=== PATIENT | male | born 1970 | race American Indian/Alaskan Native ===

== ENCOUNTER 2019-12-16 10:17 | Emergency (ER) | payer SELFPAY ==
--- NOTE | 2019-12-16 10:56 | Emergency Department Report ---
ED Neuro Deficit HPI - General Chief Complaint: High BP Stated Complaint: HIGH BLOOD PRESSURE Time Seen by Provider: 12/16/19 10:36 Source: patient, EMS Mode of arrival: Stretcher Limitations: No Limitations - History of Present Illness Initial Comments: 49-year-old male with a past medical history of obesity presents to the hospital complains of transient left-sided numbness x2 days. 2 days ago patient had left arm and leg numbness and tingling sensation lasting half a day and then resolved. Patient took aspirin prior to symptom resolution. Last night patient went to sleep at 11 PM without symptoms. He states that around 3:04 AM the paresthesias/pain/tingling sensation to his left arm and leg woke him up from sleep. Patient initially thought he slept on the extremity wrong however, symptoms did not improve. He also complains of having difficulty using his left arm because it felt heavy and complains of feeling lightheaded with standing. After EMS arrival to take him to the hospital patient developed a 6/10 headache. Patient's left-sided paresthesias improved after arrival to the ED. Patient has a family history of CAD. He does not smoke cigarettes and to his knowledge has no medical problems but he does not see a physician on a regular basis - Related Data Home Medications: Previous Rx's Medication Instructions Recorded Last Taken Type Clopidogrel [Plavix] 75 mg PO QDAY #30 tablet 12/16/19 Unknown Rx Simvastatin 40 mg PO QHS #30 tablet 12/16/19 Unknown Rx Allergies/Adverse Reactions: Allergies Allergy/AdvReac Type Severity Reaction Status Date / Time No Known Allergies Allergy Unverified 12/16/19 10:34 ED Review of Systems ROS: Stated complaint: HIGH BLOOD PRESSURE Other details as noted in HPI Comment: All other systems reviewed and negative ED Past Medical Hx - Past Medical History Previous Medical History?: No - Surgical History Past Surgical History?: No - Social History Smoking Status: Never Smoker Substance Use Type: None - Medications Home Medications: Home Medications Medication Instructions Recorded Confirmed Last Taken Type Clopidogrel [Plavix] 75 mg PO QDAY #30 tablet 12/16/19 Unknown Rx Simvastatin 40 mg PO QHS #30 tablet 12/16/19 Unknown Rx ED Neuro Physical Exam - General Limitations: No Limitations Suspected Stroke: Yes - NIHSS Assessment Interval: Baseline 1a. Level of Consciousness: alert/keenly responsive 1b. LOC Questions: answers both correctly 1c. LOC Commands: performs tasks correctly 2. Best Gaze: normal 3. Visual: no visual loss 4. Facial Palsy: normal symmetrical movement 5b. Motor Arm Right: no drift 5a. Motor Arm Left: no drift 6a. Motor Leg Left: no drift 6b. Motor Leg Right: no drift 7. Limb Ataxia: absent 8. Sensory: mild/moderate sensory loss (decreased sensation only to distal medial leg/calf area) 9. Best Language: no aphasia 10. Dysarthria: normal 11. Extinction/Inattention: no abnormality Total Score: 1 Stroke Severity: Minor Stroke ED Course Vital Signs 12/16/19 12/16/19 12/16/19 10:28 10:30 10:32 Temperature 98 F Pulse Rate 82 80 77 Respiratory 13 19 19 Rate Blood Pressure 184/93 O2 Sat by Pulse 98 98 Oximetry 12/16/19 12/16/19 12/16/19 10:34 11:00 11:30 Temperature Pulse Rate 80 80 79 Respiratory 19 15 17 Rate Blood Pressure 184/93 154/113 133/92 O2 Sat by Pulse 98 97 97 Oximetry 12/16/19 12/16/19 12/16/19 12:06 12:30 13:00 Temperature Pulse Rate 86 79 73 Respiratory 15 21 16 Rate Blood Pressure 146/86 146/86 95/61 O2 Sat by Pulse 99 98 97 Oximetry 12/16/19 12/16/19 12/16/19 13:30 14:00 14:30 Temperature Pulse Rate 79 78 78 Respiratory 20 14 19 Rate Blood Pressure 95/59 112/71 O2 Sat by Pulse 96 97 98 Oximetry 12/16/19 12/16/19 12/16/19 15:00 15:30 16:00 Temperature Pulse Rate 77 78 78 Respiratory 20 21 16 Rate Blood Pressure 107/67 129/86 101/66 O2 Sat by Pulse 94 94 94 Oximetry 12/16/19 16:30 Temperature Pulse Rate 87 Respiratory 14 Rate Blood Pressure 116/76 O2 Sat by Pulse 96 Oximetry - Lab Data Result diagrams: 12/16/19 10:59 12/16/19 10:59 Lab Results 12/16/19 12/16/19 12/16/19 Range/Units 10:59 10:59 10:59 WBC 5.9 (4.5-11.0) K/mm3 RBC 5.10 H (3.65-5.03) M/mm3 Hgb 14.5 (11.8-15.2) gm/dl Hct 41.8 (35.5-45.6) % MCV 82 L (84-94) fl MCH 28 (28-32) pg MCHC 35 H (32-34) % RDW 13.3 (13.2-15.2) % Plt Count 219 (140-440) K/mm3 Lymph % (Auto) 27.4 (13.4-35.0) % [place] % (Auto) 7.7 H (0.0-7.3) % Eos % (Auto) 2.1 (0.0-4.3) % Baso % (Auto) 1.3 (0.0-1.8) % Lymph # 1.6 (1.2-5.4) K/mm3 [place] # 0.5 (0.0-0.8) K/mm3 Eos # 0.1 (0.0-0.4) K/mm3 Baso # 0.1 (0.0-0.1) K/mm3 Seg Neutrophils % 61.5 (40.0-70.0) % Seg Neutrophils # 3.6 (1.8-7.7) K/mm3 PT 14.8 (12.2-14.9) Sec. INR 1.14 H (0.87-1.13) APTT 31.9 (24.2-36.6) Sec. Sodium 135 L (137-145) mmol/L Potassium 4.0 (3.6-5.0) mmol/L Chloride 100.2 (98-107) mmol/L Carbon Dioxide 20 L (22-30) mmol/L Anion Gap 19 mmol/L BUN 15 (9-20) mg/dL Creatinine 0.9 (0.8-1.5) mg/dL Estimated GFR > 60 ml/min BUN/Creatinine Ratio 17 % Glucose 264 H (75-100) mg/dL Hemoglobin A1c (4-6) % Calcium 9.1 (8.4-10.2) mg/dL Magnesium 2.10 (1.7-2.3) mg/dL Troponin T < 0.010 (0.00-0.029) ng/mL Triglycerides 106 (2-149) mg/dL Cholesterol 222 H (50-199) mg/dL LDL Cholesterol Direct 183 H (50-130) mg/dL HDL Cholesterol 42 (40-59) mg/dL Cholesterol/HDL Ratio 5.28 % Urine Opiates Screen Urine Methadone Screen Ur Barbiturates Screen Ur Phencyclidine Scrn Ur Amphetamines Screen U Benzodiazepines Scrn Urine Cocaine Screen U Marijuana (THC) Screen Drugs of Abuse Note 12/16/19 12/16/19 Range/Units 10:59 11:08 WBC (4.5-11.0) K/mm3 RBC (3.65-5.03) M/mm3 Hgb (11.8-15.2) gm/dl Hct (35.5-45.6) % MCV (84-94) fl MCH (28-32) pg MCHC (32-34) % RDW (13.2-15.2) % Plt Count (140-440) K/mm3 Lymph % (Auto) (13.4-35.0) % [place] % (Auto) (0.0-7.3) % Eos % (Auto) (0.0-4.3) % Baso % (Auto) (0.0-1.8) % Lymph # (1.2-5.4) K/mm3 [place] # (0.0-0.8) K/mm3 Eos # (0.0-0.4) K/mm3 Baso # (0.0-0.1) K/mm3 Seg Neutrophils % (40.0-70.0) % Seg Neutrophils # (1.8-7.7) K/mm3 PT (12.2-14.9) Sec. INR (0.87-1.13) APTT (24.2-36.6) Sec. Sodium (137-145) mmol/L Potassium (3.6-5.0) mmol/L Chloride (98-107) mmol/L Carbon Dioxide (22-30) mmol/L Anion Gap mmol/L BUN (9-20) mg/dL Creatinine (0.8-1.5) mg/dL Estimated GFR ml/min BUN/Creatinine Ratio % Glucose (75-100) mg/dL Hemoglobin A1c 11.4 H (4-6) % Calcium (8.4-10.2) mg/dL Magnesium (1.7-2.3) mg/dL Troponin T (0.00-0.029) ng/mL Triglycerides (2-149) mg/dL Cholesterol (50-199) mg/dL LDL Cholesterol Direct (50-130) mg/dL HDL Cholesterol (40-59) mg/dL Cholesterol/HDL Ratio % Urine Opiates Screen Presumptive negative Urine Methadone Screen Presumptive negative Ur Barbiturates Screen Presumptive negative Ur Phencyclidine Scrn Presumptive negative Ur Amphetamines Screen Presumptive negative U Benzodiazepines Scrn Presumptive negative Urine Cocaine Screen Presumptive negative U Marijuana (THC) Screen Presumptive negative Drugs of Abuse Note Disclamer - EKG Data -: EKG Interpreted by Oh EKG shows normal: sinus rhythm, ST-T waves (Lateral T wave inversions no ST elevation [place]) Rate: normal (83) When compared to previous EKG there are: previous EKG unavailable - Radiology Data Radiology results: report reviewed CT HEAD WITHOUT CONTRAST HISTORY: Left-sided paresthesias and weakness which are transient. COMPARISON: None TECHNIQUE: CT images of the head were obtained without contrast. Note: All CT scans at this location are performed using CT dose reduction employed for ALARA by means of automated exposure control. CONT RAST: None. FINDINGS: Cerebral and Cerebellar Hemispheres: A 1 cm left basal ganglia (posterior putamen) hypodensity on axial images measures 1.5 cm in the sagittal plane. No evidence of mass or mass effect. No midline shift. No acute hemorrhage. No acute cortical infarction. No extra-axial fluid collection. Ventricles: Normal in size and configuration for age. Osseous Structures: No significant abnormality. Visualized Paranasal Sinuses: No significant abnormality. Additional Findings: None IMPRESSION: 1. No acute intracranial abnormality. 2. 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 MRI may provide more accurate dating of the infarct. CT CERVICAL SPINE WITHOUT CONTRAST INDICATION: left side paresthesia/weakness transient. TECHNIQUE: Axial imaging performed through the cervical spine without the use of contrast. Sagittal and coronal reconstructed images were also reviewed. All CT scans at this location are performed using CT dose reduction for ALARA by means of automated exposure control. COMPARISON: None FINDINGS: Alignment: Spinal alignment is normal. Bones: There is no acute osseous abnormality. The disc spaces are preserved. Soft tissues: No acute or significant incidental soft tissue abnormality. IMPRESSION: Normal study. - Medical Decision Making Case was discussed with tele-neurologist who recommends admission for TIA work- up including MRI. Aspirin provided in the ED. Blood pressure spontaneously improved without intervention Hospitalist informed for admission - Differential Diagnosis CVA, radiculopathy, TIA, paresthesia Critical Care Time: No Critical care attestation.: If time is entered above; I have spent that time in minutes in the direct care of this critically ill patient, excluding procedure time. ED Disposition Clinical Impression: TIA (transient ischemic attack) Disposition: OP ADMIT IP TO THIS HOSP Is pt being admited?: Yes Condition: Stable Prescriptions: Clopidogrel [Plavix] 75 mg PO QDAY #30 tablet Simvastatin 40 mg PO QHS #30 tablet Time of Disposition: 15:00 (Dr barillas/hosp)
[2019-12-16 11:14] LABS: Basophils # (Auto) 0.1 K/mm3 (0.0-0.1); Basophils % (Auto) 1.3 % (0.0-1.8); Eosinophils # (Auto) 0.1 K/mm3 (0.0-0.4); Eosinophils % (Auto) 2.1 % (0.0-4.3); Hematocrit 41.8 % (35.5-45.6); Hemoglobin 14.5 gm/dl (11.8-15.2); Lymphocytes # (Auto) 1.6 K/mm3 (1.2-5.4); Lymphocytes % (Auto) 27.4 % (13.4-35.0); Mean Corpuscular HGB Conc 35 % (32-34); Mean Corpuscular Volume 82 fl (84-94); Monocytes # (Auto) 0.5 K/mm3 (0.0-0.8); Monocytes % (Auto) 7.7 % (0.0-7.3); Platelet Count 219 K/mm3 (140-440); Red Cell Distribution Width 13.3 % (13.2-15.2)
[2019-12-16 11:33] LABS: INR 1.14 (0.87-1.13)
[2019-12-16 11:34] LABS: Partial Thromboplastin Time 31.9 Sec. (24.2-36.6)
[2019-12-16 11:37] LABS: Amphetamine Screen,Urine PRESUMPTIVE NEGATIVE; Benzodiazepines Screen,Urine PRESUMPTIVE NEGATIVE; Cannabinoid Screen,Urine PRESUMPTIVE NEGATIVE; Cocaine Screen,Urine PRESUMPTIVE NEGATIVE; Methadone Screen,Urine PRESUMPTIVE NEGATIVE; Opiate Screen,Urine PRESUMPTIVE NEGATIVE
[2019-12-16 11:41] LABS: BUN/Creatinine Ratio 17; Blood Urea Nitrogen 15 mg/dL (9-20); Calcium 9.1 mg/dL (8.4-10.2); Hemolysis Index 7; LDL Cholesterol,Direct 183 mg/dL (50-130)
[2019-12-16 12:04] LABS: Chol/HDL Ratio 5.28 %; HDL Cholesterol 42 mg/dL (40-59)
--- NOTE | 2019-12-16 14:15 | Cat Scan Report ---
CT HEAD WITHOUT CONTRAST HISTORY: Left-sided paresthesias and weakness which are transient. COMPARISON: None TECHNIQUE: CT images of the head were obtained without contrast. Note: All CT scans at this location are performed using CT dose reduction employed for ALARA by means of automated exposure control. CONTRAST: None. FINDINGS: Cerebral and Cerebellar Hemispheres: A 1 cm left basal ganglia (posterior putamen) hypodensity on axi al images measures 1.5 cm in the sagittal plane. No evidence of mass or mass effect. No midline shif t. No acute hemorrhage. No acute cortical infarction. No extra-axial fluid collection. Ventricles: Normal in size and configuration for age. Osseous Structures: No significant abnormality. Visualized Paranasal Sinuses: No significant abnormality. Additional Findings: None IMPRESSION: 1. No acute intracranial abnormality. 2. 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 MRI may provide more accurate neida ing of the infarct. Signer Name: Robbie Crook MD Signed: 12/16/2019 2:10 PM Workstation Name: [id number]
--- NOTE | 2019-12-16 14:17 | Emergency Department Report ---
ED General Adult HPI - General Chief complaint: High BP Stated complaint: HIGH BLOOD PRESSURE Time Seen by Provider: 12/16/19 10:36 Source: patient, EMS Mode of arrival: Stretcher Limitations: No Limitations - Related Data Home Medications Medication Instructions Recorded Confirmed Last Taken No Known Home Medications [No 12/16/19 12/16/19 Unknown Reported Home Medications] Allergies Allergy/AdvReac Type Severity Reaction Status Date / Time No Known Allergies Allergy Unverified 12/16/19 10:34 ED Review of Systems ROS: Stated complaint: HIGH BLOOD PRESSURE Other details as noted in HPI ED Past Medical Hx - Past Medical History Previous Medical History?: No - Surgical History Past Surgical History?: No - Social History Smoking Status: Never Smoker Substance Use Type: None - Medications Home Medications: Home Medications Medication Instructions Recorded Confirmed Last Taken Type No Known Home Medications [No 12/16/19 12/16/19 Unknown History Reported Home Medications] ED Physical Exam - General Limitations: No Limitations - Neck Neck exam: Present: normal inspection ED Course Vital Signs 12/16/19 12/16/19 12/16/19 10:28 10:30 10:32 Temperature 98 F Pulse Rate 82 80 77 Respiratory 13 19 19 Rate Blood Pressure 184/93 O2 Sat by Pulse 98 98 Oximetry 12/16/19 12/16/19 12/16/19 10:34 11:00 11:30 Temperature Pulse Rate 80 80 79 Respiratory 19 15 17 Rate Blood Pressure 184/93 154/113 133/92 O2 Sat by Pulse 98 97 97 Oximetry 12/16/19 12/16/19 12/16/19 12:06 12:30 13:00 Temperature Pulse Rate 86 79 73 Respiratory 15 21 16 Rate Blood Pressure 146/86 146/86 95/61 O2 Sat by Pulse 99 98 97 Oximetry - Reevaluation(s) Reevaluation #1: 12/16/19 14:10 [facility] Impression: Patient with hypertension and intermittent paresthesias of the left side. Cannot exclude right subcortical TIA vs hypertensive urgency Recommendations: normotension MRI brain asa lipitor 80mg check lipid panel/A1C telemetry monitoring glycemic control 2d echo CUS PT/OT/eval neuro checks. inpatient neurology evaluation d/w ER attending physician CC: History of Present Illness: Patient is a 49 yr RH gentleman who presents with symptoms of elevated BP and left sided paresthesias. His BP on arrival was 254 systolic. He had paresthesias intermittently lasting 1-2 hours. Yesterday he took asa and his symptoms resolved. He went to bed yesterday at 11pm and woke up around 4am from severe numbness/tingling of hte left arm and leg. He felt as though it was moving to the right side. He took another asa 325mg but symptoms persisted until EMS arrived. He was feeling dizzy and he could not walk. His BG was 234 and BP was high. His symptoms resolved in ER. No pain, no weakness. No dysarthria, no vertigo. He still has a headache 5/10, no N/V or photophobia. He has heaviness and pressure on top of his head. Has not had a physical examination in over 5 years does not smoke, does not take any medications FH: mother and father with CAD, [place] Diagnostic Testing: CT head prelim, no acute changes, or bleed LDL 183 Vital Signs: reviewed Exam: Mental Status: Awake, alert, oriented Naming: Intact Repetition: Intact Speech: fluent Cranial Nerves: Pupils: Equal round and reactive to light Extraocular movements: Intact in all cardinal gaze Ptosis: Absent Visual mendes: Intact to finger counting Facial sensation: Intact to pin and light touch Facial movements: Intact and symmetric Motor Exam: No drift Tremor/Abnormal Movements: Resting tremor: Absent Intention tremor: Absent Postural tremor: Absent Sensory Exam: Light touch: Intact Pinprick: Intact Coordination: Finger to nose: Intact Heel to pratt: Intact Medical Decision Making: - Extensive number of diagnosis or management options are considered above. - Extensive amount of complex data reviewed. - High risk of complication and/or morbidity or mortality are associated with differential diagnostic considerations above. - There may be uncertain outcome and increased probability of prolonged functional impairment or high probability of severe prolonged functional impairment associated with some of these differential diagnosis. Medical Data Reviewed: 1.Data reviewed include clinical labs, radiology, Medical Tests; 2.Tests results discussed w/performing or interpreting physician; 3.Obtaining/reviewing old medical records; 4.Obtaining case history from another source; 5.Independent review of image, tracing or specimen. Patient was informed the Neurology Consult would happen via TeleHealth consult by way of interactive audio and video telecommunications and consented to receiving care in this manner. 12/16/19 14:19 12/16/19 14:25 12/16/19 14:26 ED Medical Decision Making - Lab Data Result diagrams: 12/16/19 10:59 12/16/19 10:59 Critical care attestation.: If time is entered above; I have spent that time in minutes in the direct care of this critically ill patient, excluding procedure time. ED Disposition Clinical Impression: TIA (transient ischemic attack) Disposition: DC-[id number] OP ADMIT IP TO THIS HOSP Is pt being admited?: Yes Does the pt Need Aspirin: Yes Referrals: PRIMARY CARE, [Primary Care Provider] - 3-5 Days
--- NOTE | 2019-12-16 14:18 | Cat Scan Report ---
CT CERVICAL SPINE WITHOUT CONTRAST INDICATION: left side paresthesia/weakness transient. TECHNIQUE: Axial imaging performed through the cervical spine without the use of contrast. Sagittal and coronal reconstructed images were also reviewed. All CT scans at this location are performed us ing CT dose reduction for ALARA by means of automated exposure control. COMPARISON: None FINDINGS: Alignment: Spinal alignment is normal. Bones: There is no acute osseous abnormality. The disc spaces are preserved. Soft tissues: No acute or significant incidental soft tissue abnormality. IMPRESSION: Normal study. Signer Name: Robbie Crook MD Signed: 12/16/2019 2:14 PM Workstation Name: [id number]
[2019-12-16] MEDS ORDERED: ASPIRIN 325 MG TAB PO ONE (14:26)
[2019-12-16] MEDS ORDERED: PRAVASTATIN 40 MG TAB PO ONE (15:07)
--- NOTE | 2019-12-16 15:07 | Event Note ---
Date: 12/16/19 Patient seen and evaluated in the emergency department. Patient found to have no symptoms of acute stroke. Patient initiated on stroke protocol in the emergency department. CT scan of the head showed no acute findings however it did reveal evidence of subacute ischemia. Patient initiated on antiplatelet therapy, and statin therapy. Patient medically optimized and back to usual state of health patient subsequently discharged home for emergency department. Patient struck to follow-up with neurology within 1 week as well as primary care physician within 1 week. No significant physical exam findings. Patient medically optimized and discharged home.
[2019-12-16 16:47] VITALS: BP 116/76
== END 2019-12-16 16:47 | disposition admitted as inpatient to this hospital (09) ==
LOC: ED 10:17
DX: G45.9 Transient cerebral ischemic attack, unspecified (principal); I10 Essential (primary) hypertension
CPT/HCPCS: 36415; 70450; 72125; 80048; 80061; 80307; 82962; 83036; 83735; 84484; 85025; 85610; 85730; 93005; 93010; 99285; A9270